=== PATIENT | male | born 1970 | race Two or more races ===

== ENCOUNTER 2024-06-06 14:55 | Outpatient (RCR) | payer MEDICAID, SELFPAY | END 2024-06-15 23:59 | disposition home or self-care (01) | LOC: SCTC 14:55 | PROVIDERS: PCP Physician Assistant; Referring Provider Physician Assistant; Visit Provider Internal Medicine Hematology & Oncology | DX: C7A.8 Other malignant neuroendocrine tumors (principal) | CPT/HCPCS: 96372; J2353 ==

== ENCOUNTER 2024-07-08 14:53 | Outpatient (RCR) | payer MEDICAID, SELFPAY | END 2024-07-16 23:59 | disposition home or self-care (01) | LOC: SCTC 14:53 | PROVIDERS: PCP Physician Assistant; Referring Provider Nurse Practitioner Family; Visit Provider Nurse Practitioner Family | DX: C7A.8 Other malignant neuroendocrine tumors (principal) | CPT/HCPCS: 96372; J2353 ==

== ENCOUNTER 2024-08-05 14:29 | Outpatient (RCR) | payer MEDICAID, SELFPAY | END 2024-08-16 23:59 | disposition home or self-care (01) | LOC: SCTC 14:29 | PROVIDERS: PCP Physician Assistant; Referring Provider Physician Assistant; Visit Provider Nurse Practitioner Family | DX: C7A.8 Other malignant neuroendocrine tumors (principal) | CPT/HCPCS: 96372; 99214; J2353; G0463 ==

== ENCOUNTER 2024-09-12 13:22 | Outpatient (RCR) | payer MEDICAID, SELFPAY | END 2024-09-13 23:59 | disposition home or self-care (01) | LOC: SCTC 13:22 | PROVIDERS: PCP Physician Assistant; Referring Provider Physician Assistant; Visit Provider Internal Medicine Hematology & Oncology | DX: C7A.8 Other malignant neuroendocrine tumors (principal) | CPT/HCPCS: 96372; J2353 ==

== ENCOUNTER 2024-10-17 09:58 | Outpatient (RCR) | payer MEDICAID, SELFPAY | END 2024-11-13 23:59 | disposition home or self-care (01) | LOC: SCTC 09:58 | PROVIDERS: PCP Physician Assistant; Referring Provider Nurse Practitioner Family; Visit Provider Nurse Practitioner Family | DX: C7A.8 Other malignant neuroendocrine tumors (principal) | CPT/HCPCS: 96372; J2353 ==

== ENCOUNTER 2024-12-03 15:04 | Outpatient (RCR) | payer MEDICAID, SELFPAY | END 2024-12-14 23:59 | disposition home or self-care (01) | LOC: SCTC 15:04 | PROVIDERS: PCP Physician Assistant; Referring Provider Physician Assistant; Visit Provider Internal Medicine Hematology & Oncology | DX: C7A.8 Other malignant neuroendocrine tumors (principal) | CPT/HCPCS: 96372; J2353 ==

== ENCOUNTER 2025-01-08 15:38 | Outpatient (RCR) | payer MEDICAID, SELFPAY | END 2025-01-13 23:59 | disposition home or self-care (01) | LOC: SCTC 15:38 | PROVIDERS: PCP Physician Assistant; Referring Provider Physician Assistant; Visit Provider Nurse Practitioner Family | DX: C7A.8 Other malignant neuroendocrine tumors (principal) | CPT/HCPCS: 96372; J2353 ==

== ENCOUNTER 2025-02-19 15:39 | Outpatient (RCR) | payer MEDICAID, SELFPAY | END 2025-03-16 23:59 | disposition home or self-care (01) | LOC: SCTC 15:39 | PROVIDERS: PCP Physician Assistant; Referring Provider Physician Assistant; Visit Provider Nurse Practitioner Family | DX: C7A.8 Other malignant neuroendocrine tumors (principal) | CPT/HCPCS: 96372; J2353 ==

== ENCOUNTER 2025-03-24 14:44 | Outpatient (RCR) | payer MEDICAID, SELFPAY | END 2025-04-15 23:59 | disposition home or self-care (01) | LOC: SCTC 14:44 | PROVIDERS: PCP Physician Assistant; Referring Provider Physician Assistant; Visit Provider Nurse Practitioner Family | DX: C7A.8 Other malignant neuroendocrine tumors (principal); R19.09 Other intra-abdominal and pelvic swelling, mass and lump; Z86.16 Personal history of COVID-19 | CPT/HCPCS: 96372; 99212; J2353; G0463 ==

== ENCOUNTER → 2025-04-22 | Outpatient (CLI) | payer MEDICAID, SELFPAY ==
--- NOTE | 2025-04-22 14:33 | XR_ITS ---
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 CTDI: vol (mGy) 9.29 DLP: (mGycm) 588 Technique: Multiple axial sections of the abdomen and pelvis have been obtained. 64 slice high-resolution scanner used. 3 mm axial sections have been obtained, post intravenous injection 60 cc [id number] 2-D sagittal, coronal reconstructions obtained. Low dose protocols were performed. One or more of the following dose reduction techniques were used; automated exposure control, adjustment of the mA and/or KV according to patient size, use of iterative reconstruction technique. 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
== END | disposition home or self-care (01) ==
PROVIDERS: Referring Provider Physician Assistant; Visit Provider Physician Assistant
DX: R19.09 Other intra-abdominal and pelvic swelling, mass and lump (principal); C7A.8 Other malignant neuroendocrine tumors; C16.9 Malignant neoplasm of stomach, unspecified
CPT/HCPCS: 74177; A4649; Q9967

== ENCOUNTER 2025-05-01 14:10 | Outpatient (RCR) | payer MEDICAID, SELFPAY | END 2025-05-16 23:59 | disposition home or self-care (01) | LOC: SCTC 14:10 | PROVIDERS: PCP Physician Assistant; Referring Provider Physician Assistant; Visit Provider Nurse Practitioner Family | DX: C7A.8 Other malignant neuroendocrine tumors (principal) | CPT/HCPCS: 96372; 99212; J2353; G0463 ==

== ENCOUNTER 2025-06-19 09:18 | Outpatient (RCR) | payer MEDICAID, SELFPAY | END 2025-07-16 23:59 | disposition home or self-care (01) | LOC: SCTC 09:18 | PROVIDERS: PCP Physician Assistant; Referring Provider Physician Assistant; Visit Provider Internal Medicine Hematology & Oncology | DX: C7A.8 Other malignant neuroendocrine tumors (principal) | CPT/HCPCS: 96372; J2353 ==

== ENCOUNTER → 2025-07-14 | Outpatient (CLI) | payer MEDICAID, SELFPAY ==
--- NOTE | 2025-07-14 09:00 | XR_ITS ---
Examination: MRI abdomen with intravenous contrast. MRI abdomen without intravenous contrast. Date and time of exam: July 14, 2025, 0950 hours, comparison CT abdomen pelvis April 22, 2025, CT chest abdomen pelvis November 29, 2023 INDICATIONS: Secondary and unspecified malignant neoplasm of intra-abdominal lymph nodes, history neuro endocrine tumors of the abdomen Technique: Multiple axial, sagittal and coronal sections of the abdomen obtained. Transverse images, TR 6020, TE 107. T1 weighted transverse images, TR 582, TE 9.5. T2-weighted sagittal images, TR 4000, TE 105. T2-weighted sagittal images, TR 4000, TE 5. Coronal images, TR 4210, TE 107. Axial and coronal images are obtained post 20 cc intravenous injection, gadolinium. Findings: 20 mm nonenhancing anterior left lobe liver cyst Post contrast images demonstrate no abnormal enhancing liver lesions No pancreatic. Stable 29 mm fat-containing left adrenal adenoma Spleen is not enlarged No hydronephrosis No ascites No interval abdominal lymphadenopathy No hydronephrosis Stable soft tissue mass in the mesentery anterior to the aorta, axial image 51, which shows mild enhancement, and measures 30 mm IMPRESSION: 20 mm nonenhancing anterior left lobe liver cyst, no abnormal enhancing liver lesions Stable 29 mm fat-containing left adrenal adenoma Stable enhancing soft tissue mass in the mesentery anterior to the aorta, measuring 30 mm compared to [address] abdomen pelvis April 22, 2025 No interval abdominal lymphadenopathy
== END | disposition home or self-care (01) ==
PROVIDERS: Referring Provider Nurse Practitioner Family; Visit Provider Nurse Practitioner Family
DX: K76.89 Other specified diseases of liver (principal); D35.02 Benign neoplasm of left adrenal gland; C77.2 Secondary and unspecified malignant neoplasm of intra-abdominal lymph nodes
CPT/HCPCS: 74183; A9577